=== PATIENT | male | born 1965 | race African-American/Black ===

== ENCOUNTER 2021-01-12 11:41 | Observation (INO) | payer BC ==
[2021-01-12] MEDS ORDERED: NITROGLYCERIN SUBLINGUAL 1/150 0.4 MG TAB SL ONE (12:29)
[2021-01-12] MEDS ORDERED: ACETAMINOPHEN 1000 MG/100 ML VIAL (NON FORMULARY) IVPB ONE (12:30)
[2021-01-12 12:35] LABS: BASO % 0.8 % (0-2.0); EOS % 3.6 % (0-4.5); HEMATOCRIT 42.3 % (35.4-49); HEMOGLOBIN 14.5 GM/dL (11.7-16.9); LYMPH % 25.6 % (8-40); MCH 28.7 pg (25.7-33.7); MCHC 34.2 g/dl (32.0-35.9); MEAN PLT VOLUME 9.3 fl (7.5-11.1); MONO % 5.5 % (3.8-10.2); NEUT % 64.5 % (42.8-82.8); PLATELET COUNT 272 K/MM3 (134-434); RBC 5.04 M/mm3 (4.00-5.60); RDW 13.7 % (11.9-15.9)
[2021-01-12] MEDS ORDERED: NITROGLYCERIN SUBLINGUAL 1/150 0.4 MG TAB ONE (12:35)
[2021-01-12] MEDS ORDERED: ACETAMINOPHEN INJECTION 100 ML IVPB ONE (12:36)
[2021-01-12 12:45] LABS: INR 1.09 (0.83-1.09); PROTHROMBIN TIME (PATIENT) 13.1 SEC (9.7-13.0)
[2021-01-12 12:47] LABS: ACTIVATED PTT 31.3 SECONDS (25.2-36.5)
[2021-01-12 12:53] LABS: POTASSIUM 4.1 mmol/L (3.5-5.1)
[2021-01-12 12:56] LABS: CALCIUM 9.1 mg/dL (8.5-10.1)
[2021-01-12 12:57] LABS: BLOOD UREA NITROGEN 13.6 mg/dL (7-18); MAGNESIUM 2.5 mg/dL (1.8-2.4)
[2021-01-12 13:01] LABS: BILIRUBIN,TOTAL 0.5 mg/dL (0.2-1); TOT PROT 7.4 g/dl (6.4-8.2)
[2021-01-12 13:05] LABS: N-TERMINAL BNP 697.7 pg/ml (5-125)
[2021-01-12] MEDS ORDERED: NITROGLYCERIN 2% OINTMENT - 1GM PACKET TD ONE ×2 (14:03→14:22)
[2021-01-12] MEDS ORDERED: LISINOPRIL 5 MG TABLET PO ONE (15:37)
[2021-01-12] MEDS ORDERED: LISINOPRIL 5 MG TABLET ONE (16:12)
[2021-01-12] MEDS ORDERED: cloNIDine HCL 0.1 MG TABLET ONE (16:12)
[2021-01-12] MEDS: cloNIDine HCL 0.1 MG TABLET PO SCH (16:15)
[2021-01-13 03:48] VITALS: BMI 30.4
[2021-01-13 07:42] LABS: BASO % 0.2 % (0-2.0); EOS % 2.9 % (0-4.5); HEMOGLOBIN 13.7 GM/dL (11.7-16.9); LYMPH % 13.3 % (8-40); MCH 28.7 pg (25.7-33.7); MCHC 34.3 g/dl (32.0-35.9); MEAN CELL VOLUME 83.5 fl (80-96); MEAN PLT VOLUME 9.5 fl (7.5-11.1); MONO % 5.9 % (3.8-10.2); NEUT % 77.7 % (42.8-82.8); PLATELET COUNT 263 K/MM3 (134-434); RBC 4.79 M/mm3 (4.00-5.60); RDW 13.5 % (11.9-15.9)
[2021-01-13 07:49] LABS: POTASSIUM 3.9 mmol/L (3.5-5.1)
[2021-01-13 07:55] LABS: CHOLESTEROL 168 mg/dL (50-200)
[2021-01-13 07:56] LABS: ALBUMIN 3.7 g/dl (3.4-5.0); BLOOD UREA NITROGEN 20.7 mg/dL (7-18); LDL CHOLESTEROL (ONLY SJRH) 102 mg/dL (5-100); MAGNESIUM 2.5 mg/dL (1.8-2.4); TRIGLYCERIDES 127 mg/dL (0-150)
[2021-01-13 07:58] LABS: HDL CHOLESTEROL 36 mg/dL (40-60)
[2021-01-13 07:59] LABS: CREATININE 1.1 mg/dL (0.55-1.3)
[2021-01-13 08:01] LABS: BILIRUBIN,TOTAL 0.6 mg/dL (0.2-1); TOT PROT 6.6 g/dl (6.4-8.2)
[2021-01-13] MEDS: cloNIDine HCL 0.1 MG TABLET PO SCH (09:47)
[2021-01-13] MEDS: LISINOPRIL 20 MG TABLET PO SCH (09:47)
[2021-01-13] MEDS: ENOXAPARIN NA (PORCINE) 40 MG/0.4 ML DISP.SYRIN SQ SCH (09:47)
[2021-01-13] MEDS ORDERED: ACETAMINOPHEN 325 MG TABLET (FP) PO PRN (20:41)
[2021-01-14 06:22] VITALS: TEMP 98.5
[2021-01-14] MEDS ORDERED: cloNIDine HCL 0.1 MG TABLET PO SCH (10:00)
[2021-01-14] MEDS: LISINOPRIL 20 MG TABLET PO SCH (10:06)
[2021-01-14] MEDS: ENOXAPARIN NA (PORCINE) 40 MG/0.4 ML DISP.SYRIN SQ SCH (10:06)
[2021-01-14 11:20] VITALS: BP 162/99; PULSE 68
== END 2021-01-14 11:22 | disposition home or self-care (01) ==
LOC: JER 11:41 → INTOOBSV 15:33 → JERBED 15:33 → J4W 01-13 03:26
PROVIDERS: ADMIT Internal Medicine; ATTEND Nurse Practitioner Acute Care
PROC: 3E023GC Introduction of Other Therapeutic Substance into Muscle, Percutaneous Approach (ICD-10-PCS; principal; 2021-01-12)
PROC: 3E033NZ Introduction of Analgesics, Hypnotics, Sedatives into Peripheral Vein, Percutaneous Approach (ICD-10-PCS; 2021-01-12)
DX: I16.0 Hypertensive urgency (principal); R94.31 Abnormal electrocardiogram [ECG] [EKG]; R07.9 Chest pain, unspecified; Z20.822 Contact with and (suspected) exposure to COVID-19; Z87.891 Personal history of nicotine dependence; Z29.9 Encounter for prophylactic measures, unspecified
CPT/HCPCS: 36415; 71045-TC-FY; 71275-TC; 74174-TC; 80053; 80061; 82550; 82553; 83721; 83735; 83880; 84443; 84484; 85025; 85610; 85730; 86850; 86900; 86901; 93005; 93010; 93306-TC; 99285-25; C9803; G0378; J0131; J0735; Q9967; U0003